=== PATIENT | female | born 1970 | race American Indian/Alaskan Native ===

== ENCOUNTER 2017-04-23 22:53 | Emergency (ER) | payer SELFPAY | END 2017-04-23 23:10 | disposition left against medical advice (07) | LOC: ED 22:53 | DX: N39.0 Urinary tract infection, site not specified (principal); Z53.21 Procedure and treatment not carried out due to patient leaving prior to being seen by health care provider ==

== ENCOUNTER 2017-04-26 21:44 | Emergency (ER) | payer OTHER ==
[2017-04-26 21:56] VITALS: BP 149/100
[2017-04-26 23:48] LABS: Bacteria,Urine 2+ /HPF (Negative); Bilirubin,Urine NEG (Negative); Blood,Urine LG (Negative); Ketones,Urine TR mg/dL (Negative); Leukocyte Esterase,Urine LG (Negative); Mucus,Urine 1+ /HPF; Nitrite,Urine NEG (Negative); Urobilinogen,Urine < 2.0 mg/dL (<2.0)
[2017-04-27 02:25] LABS: Bacteria,Urine 1+ /HPF (Negative); Bilirubin,Urine NEG (Negative); Blood,Urine MOD (Negative); Ketones,Urine 20 mg/dL (Negative); Leukocyte Esterase,Urine MOD (Negative); Mucus,Urine 1+ /HPF; Nitrite,Urine NEG (Negative); Urobilinogen,Urine < 2.0 mg/dL (<2.0)
--- NOTE | 2017-04-27 03:40 | Emergency Department Report ---
ED Female HPI - General Chief complaint: Urogenital-Female Stated complaint: POSS UTI Source: patient Mode of arrival: Ambulatory Limitations: No Limitations - History of Present Illness Initial comments: 46 year old female presents to ED with dysuria, frequency and mild hematuria x 3 days. patient is stable, neurologically intact and in no acute distress. patient denies N/V, abd pain, flank pain. patient has refused pelvic exam stating she has no concern for STD/vaginal infection. patient states she has OB/ [facility] appt scheduled and agrees and understands to keep appt for pelvic examination. MD Complaint: dysuria -: days(s) (3) Radiation: non-radiating Severity: mild Quality: burning Consistency: intermittent Worsens with: urination Are you Now?: No Associated Symptoms: dysuria, hematuria. denies: vaginal discharge, vaginal bleeding, abdominal pain, nausea/vomiting, fever/chills, headaches, loss of appetite, rash, seizure, shortness of breath, syncope, weakness - Related Data Previous Rx's Medication Instructions Recorded Last Taken Type Phenazopyridine [Pyridium] 100 mg PO TID #9 tab 04/27/17 Unknown Rx Sulfamethoxazole/Trimethoprim 1 each PO BID #6 tablet 04/27/17 Unknown Rx [Bactrim DS TAB] Allergies Allergy/AdvReac Type Severity Reaction Status Date / Time No Known Allergies Allergy Unverified 04/26/17 21:55 ED Review of Systems ROS: Stated complaint: POSS UTI Other details as noted in HPI Constitutional: denies: chills, diaphoresis, fever, weakness Eyes: denies: eye pain, eye discharge, vision change ENT: denies: ear pain, throat pain Respiratory: denies: cough, shortness of breath, wheezing Cardiovascular: denies: chest pain, palpitations Endocrine: no symptoms reported Gastrointestinal: denies: abdominal pain, nausea, vomiting, diarrhea Genitourinary: urgency, dysuria, frequency, hematuria. denies: discharge Musculoskeletal: denies: back pain, joint swelling, arthralgia Skin: denies: rash, lesions Neurological: denies: headache, weakness, numbness, paresthesias, confusion, abnormal gait, vertigo Psychiatric: denies: anxiety, depression Hematological/Lymphatic: denies: easy bleeding, easy bruising ED Past Medical Hx - Past Medical History Previous Medical History?: No Additional medical history: kidney stones,ovarian cyst - Surgical History Additional Surgical History: kidney stones,D&C - Social History Smoking Status: Never Smoker Substance Use Type: None - Medications Home Medications: Home Medications Medication Instructions Recorded Confirmed Last Taken Type Phenazopyridine [Pyridium] 100 mg PO TID #9 tab 04/27/17 Unknown Rx Sulfamethoxazole/Trimethoprim 1 each PO BID #6 tablet 04/27/17 Unknown Rx [Bactrim DS TAB] ED Physical Exam - General Limitations: No Limitations General appearance: alert, in no apparent distress - Head Head exam: Present: atraumatic, normocephalic - Eye Eye exam: Present: normal appearance - ENT ENT exam: Present: mucous membranes moist - Neck Neck exam: Present: normal inspection - Respiratory Respiratory exam: Present: normal lung sounds bilaterally. Absent: respiratory distress, wheezes, rales, rhonchi - Cardiovascular Cardiovascular Exam: Present: regular rate, normal rhythm. Absent: systolic murmur, diastolic murmur, rubs, gallop - GI/Abdominal GI/Abdominal exam: Present: soft, normal bowel sounds. Absent: distended, tenderness, guarding, rebound, rigid - Rectal Rectal exam: Present: deferred - External exam: Present: other (patient refused) - Extremities Exam Extremities exam: Present: normal inspection - Back Exam Back exam: Present: normal inspection - Neurological Exam Neurological exam: Present: alert, oriented X3 - Psychiatric Psychiatric exam: Present: normal affect, normal mood - Skin Skin exam: Present: warm, dry, intact, normal color. Absent: rash ED Course Vital Signs 04/26/17 21:51 Temperature 98.7 F Pulse Rate 73 Respiratory 18 Rate Blood Pressure 149/100 O2 Sat by Pulse 97 Oximetry ED Medical Decision Making - Lab Data Labs 04/26/17 04/27/17 23:02 02:02 Urine Color Shivani Yellow Urine Turbidity Cloudy Slightly-cloudy Urine pH 5.0 5.0 Ur Specific [place] 1.026 1.024 Urine Protein 30 mg/dl 30 mg/dl Urine Glucose (UA) Neg Neg Urine Ketones Tr 20 Urine Blood Lg Mod Urine Nitrite Neg Neg Urine Bilirubin Neg Neg Urine Urobilinogen < 2.0 < 2.0 Ur Leukocyte Esterase Lg Mod Urine WBC (Auto) 52.0 H 10.0 H Urine RBC (Auto) 7.0 11.0 U Epithel Cells (Auto) 97.0 H 19.0 H Urine Bacteria (Auto) 2+ 1+ Urine Mucus 1+ 1+ Urine HCG, Qual Negative - Medical Decision Making 46 year old female presents to ED with dysuria, hematuria and frequency/ urgency. patient has no history of DM. patient has urine positive for UTI and negative for . patient is stable, neurologically intact and in no acute distress. patient has refused pelvic examination during ED visit. patient agrees and understands importance of keeping prior [facility] appt for pelvic examination. Critical care attestation.: If time is entered above; I have spent that time in minutes in the direct care of this critically ill patient, excluding procedure time. ED Disposition Clinical Impression: UTI (urinary tract infection) Qualifiers: Urinary tract infection type: acute cystitis Hematuria presence: with hematuria Qualified Code(s): N30.01 - Acute cystitis with hematuria Disposition: TO HOME OR SELFCARE Is pt being admited?: No Does the pt Need Aspirin: No Condition: Stable Instructions: Urinary Tract Infection in Women (ED) Prescriptions: Phenazopyridine [Pyridium] 100 mg PO TID #9 tab Sulfamethoxazole/Trimethoprim [Bactrim DS TAB] 1 each PO BID #6 tablet Referrals: PRIMARY CARE, [Primary Care Provider] - 3-5 Days Forms: Work/School Release Form(ED)
== END 2017-04-27 02:50 | disposition home or self-care (01) ==
LOC: ED 21:44
DX: N30.01 Acute cystitis with hematuria (principal); N83.209 Unspecified ovarian cyst, unspecified side
CPT/HCPCS: 81001; 81025; 87086; 99283

== ENCOUNTER 2017-06-13 16:25 | Emergency (ER) | payer BC, OTHER ==
--- NOTE | 2017-06-13 16:50 | Emergency Department Report ---
Chief Complaint: Dizziness Stated Complaint: ELEVATED BLOOD PRESSURE,LIGHT HEADED Time Seen by Provider: 06/13/17 16:45 - HPI History of Present Illness: Patient here reports that she has elevated blood pressure and feels lightheaded. She says she feels dizzy. Blood pressure is 161/95 and reports she does not have a history of high blood pressure. Denies any nausea or vomiting. Reported headache 6 that attended to the front of her head. Denies any chest pain or shortness of breath. She reports that she is having some abdominal cramping on and off. Denies any urinary burning frequency or urgency. Denies any fever or chills. Denies any cough or congestion. - ROS Review of Systems: All systems are negative unless stated in HPI above - Exam Vital Signs: Vital Signs 06/13/17 16:27 Temperature 98.7 F Pulse Rate 72 Respiratory 18 Rate Blood Pressure 161/95 O2 Sat by Pulse 99 Oximetry Physical Exam: Gen.: 46-year-old female well-nourished well-developed in no acute distress Mini neurological: GCS of 15, alert and oriented 3, speech is clear and fluid and no facial drooping. Gait is normal. CV: S1, S2. Regular rate and rhythm. MSE screening note: Focused history and physical exam performed. Due to findings the following was ordered: ED Medical Decision Making - Medical Decision Making MDM: Patient screened by provider in triage area. Appropriate protocol initiated and patient to be seen in main ED by provider ED Disposition for MSE Condition: Stable
[2017-06-13 17:25] LABS: Basophils % (Auto) 0.4 % (0.0-1.8); Eosinophils % (Auto) 1.4 % (0.0-4.3); Hematocrit 39.4 % (30.3-42.9); Hemoglobin 12.8 gm/dl (10.1-14.3); Mean Corpuscular HGB Conc 33 % (30-34); Mean Corpuscular Hemoglobin 29 pg (28-32); Mean Corpuscular Volume 89 fl (79-97); Platelet Count 236 K/mm3 (140-440); Red Blood Count 4.42 M/mm3 (3.65-5.03); Red Cell Distribution Width 13.5 % (13.2-15.2); White Blood Count 4.1 K/mm3 (4.5-11.0)
[2017-06-13 17:47] LABS: Alanine Aminotransferase 19 units/L (7-56); Albumin/Globulin Ratio 1.1 %; Alkaline Phosphatase 51 units/L (35-129); Anion Gap 15 mmol/L; BUN/Creatinine Ratio 18; Blood Urea Nitrogen 9 mg/dL (7-17); Calcium 8.5 mg/dL (8.4-10.2); Carbon Dioxide 24 mmol/L (22-30); Chloride 102.7 mmol/L (98-107); Glucose 83 mg/dL (65-100); Potassium 3.9 mmol/L (3.6-5.0); Sodium 138 mmol/L (137-145); Total Protein 7.5 g/dL (6.3-8.2)
--- NOTE | 2017-06-13 18:12 | Cat Scan Report ---
FINAL REPORT EXAM: CT HEAD/BRAIN WO CON HISTORY: Lightheadedness/Dizziness TECHNIQUE: Standard unenhanced CT of the head at 5.0 millimeter axial increments. PRIORS: None. FINDINGS: The ventricular system is normal in size and configuration. Cavum septum vergae and pellucidum are normal variants. There is no evidence for parenchymal volume loss. There is no evidence for mass lesion, mass effect, midline shift, acute intracranial hemorrhage, or acute ischemia/ infarction. No evidence for acute skull fracture is seen. No abnormality in the overlying scalp soft tissues is seen. Visualized paranasal sinuses are clear. IMPRESSION: Negative CT of the head. No acute intracranial process noted.
[2017-06-13 18:21] VITALS: BP 132/85
[2017-06-13 18:31] LABS: Bilirubin,Urine NEG (Negative); Blood,Urine NEG (Negative); Ketones,Urine NEG (Negative); Leukocyte Esterase,Urine TR (Negative); Mucus,Urine 3+ /HPF; Nitrite,Urine NEG (Negative); Protein,Urine <15 mg/dL mg/dL (Negative)
--- NOTE | 2017-06-13 19:17 | Emergency Department Report ---
HPI - General Chief Complaint: Dizziness Time Seen by Provider: 06/13/17 16:50 - HPI HPI: This is a 46-year-old female who presents to the emergency department with complaint of a 2-3 day history of lightheadedness, dizziness, headache and feeling off balance. The headache is in the frontal area. She denies any vision change, slurred speech or any other neurological deficits. She has not taken anything for her symptoms prior to presentation she denies any past medical history. She does not have a primary care physician. She denies any tobacco or illicit drug use or abuse. The patient works here at [employer]. ED Past Medical Hx - Past Medical History Previous Medical History?: No Hx Kidney Stones: Yes Additional medical history: Ovarian cyst - Surgical History Additional Surgical History: D&C - Social History Smoking Status: Never Smoker Substance Use Type: None - Medications Home Medications: Home Medications Medication Instructions Recorded Confirmed Last Taken Type Phenazopyridine [Pyridium] 100 mg PO TID #9 tab 04/27/17 Unknown Rx Sulfamethoxazole/Trimethoprim 1 each PO BID #6 tablet 04/27/17 Unknown Rx [Bactrim DS TAB] ED Review of Systems ROS: Stated complaint: ELEVATED BLOOD PRESSURE,LIGHT HEADED Other details as noted in HPI Comment: All other systems reviewed and negative Constitutional: denies: chills, fever Eyes: denies: eye pain, eye discharge, vision change ENT: denies: ear pain, throat pain Respiratory: denies: cough, shortness of breath, wheezing Cardiovascular: denies: chest pain, palpitations Gastrointestinal: denies: abdominal pain, nausea, diarrhea Genitourinary: denies: urgency, dysuria, discharge Musculoskeletal: denies: back pain, joint swelling, arthralgia Skin: denies: rash, lesions Neurological: headache, other (dizziness, lightheadedness). denies: numbness, paresthesias Physical Exam - Physical Exam Vital Signs: Vital Signs 06/13/17 06/13/17 16:27 18:19 Temperature 98.7 F 98.1 F Pulse Rate 72 57 L Respiratory 18 16 Rate Blood Pressure 161/95 Blood Pressure 132/85 [Right] O2 Sat by Pulse 99 100 Oximetry Physical Exam: GENERAL: The patient is well-developed well-nourished. HENT: Normocephalic. Atraumatic. Patient has moist mucous membranes. EYES: Extraocular motions are intact. Pupils equal reactive to light bilaterally. No nystagmus. NECK: Supple. Trachea is midline. CHEST/LUNGS: Clear to auscultation. There is no respiratory distress noted. HEART/CARDIOVASCULAR: Regular. There is no tachycardia. There is no gallop rub or murmur. ABDOMEN: Abdomen is soft, nontender. Patient has normal bowel sounds. There is no abdominal distention. SKIN: Skin is warm and dry. NEURO: The patient is awake, alert, and oriented. The patient is cooperative. The patient has no focal neurologic deficits. The patient has normal speech and gait. Cranial nerves II through XII grossly intact. No dysmetria. No pronator drift. MUSCULOSKELETAL: There is no tenderness or deformity. There is no limitation range of motion. There is no evidence of acute injury. ED Course Vital Signs 06/13/17 06/13/17 16:27 18:19 Temperature 98.7 F 98.1 F Pulse Rate 72 57 L Respiratory 18 16 Rate Blood Pressure 161/95 Blood Pressure 132/85 [Right] O2 Sat by Pulse 99 100 Oximetry ED Medical Decision Making - Lab Data Result diagrams: 06/13/17 17:12 06/13/17 17:12 - EKG Data -: EKG Interpreted by Fl EKG shows normal: sinus rhythm, axis, intervals, QRS complexes, ST-T waves Rate: normal - EKG Data When compared to previous EKG there are: previous EKG unavailable Interpretation: normal EKG - Radiology Data Radiology results: report reviewed CT of the head does not show any acute intracranial process including no ischemia, shift, mass, bleeding or skull fracture. - Medical Decision Making 46-year-old female presents with some dizziness/lightheadedness and a headache. CT does not show any bleed, shift, mass or any acute process. Labs are unremarkable including no signs of infection, the patient is not , and normal thyroid function. Vital signs stable throughout her ED course. She does not have any focal, motor or sensory deficits in her cranial nerves are intact. She was reevaluated multiple times for multiple hours and she is feeling improved and no longer has a headache. She was seen ambulatory in the emergency department and appears stable. For all these reasons she appears safe for discharge home. She was given referrals for primary care. She will return to the ER with any worsening of her symptoms or any acute distress. - Differential Diagnosis vertigo, brain bleed, tension headache, vasovagal, orthostatic hypotension Critical Care Time: No Critical care attestation.: If time is entered above; I have spent that time in minutes in the direct care of this critically ill patient, excluding procedure time. ED Disposition Clinical Impression: Dizziness, Lightheaded Headache Qualifiers: Headache type: unspecified Headache chronicity pattern: unspecified pattern Intractability: not intractable Qualified Code(s): R51 - Headache Disposition: DC- TO HOME OR SELFCARE Is pt being admited?: No Condition: Stable Instructions: Acute Headache (ED), Lightheadedness (ED), Dizziness (ED) Additional Instructions: Please follow up with a primary care physician in the next few days. Return to the emergency Department with any worsening of your symptoms or any acute distress. Referrals: PRIMARY CARE, [Primary Care Provider] - 3-5 Days RICH LOPEZ MD [Staff Physician] - 3-5 Days PRADIP MENA MD [Staff Physician] - 3-5 Days [facility] [Outside] - 3-5 Days Time of Disposition: 20:30
== END 2017-06-13 20:45 | disposition home or self-care (01) ==
LOC: ED 16:25
DX: R42 Dizziness and giddiness (principal); R51 Headache; N83.209 Unspecified ovarian cyst, unspecified side
CPT/HCPCS: 36415; 70450; 80053; 81001; 84443; 84484; 84703; 85025; 93005; 93010

== ENCOUNTER 2017-08-31 16:41 | Emergency (ER) | payer SELFPAY ==
[2017-08-31] MEDS ORDERED: ASPIRIN PO ONE (16:55)
[2017-08-31 18:08] LABS: BUN/Creatinine Ratio 16; Blood Urea Nitrogen 11 mg/dL (7-17); Calcium 9.2 mg/dL (8.4-10.2); Hemolysis Index 18
[2017-08-31 18:33] LABS: Eosinophils # (Auto) 0.1 K/mm3 (0.0-0.4); Eosinophils % (Auto) 2.1 % (0.0-4.3); Hematocrit 40.3 % (30.3-42.9); Hemoglobin 13.9 gm/dl (10.1-14.3); Lymphocytes # (Auto) 1.4 K/mm3 (1.2-5.4); Lymphocytes % (Auto) 28.6 % (13.4-35.0); Mean Corpuscular HGB Conc 34 % (30-34); Mean Corpuscular Hemoglobin 30 pg (28-32); Mean Corpuscular Volume 87 fl (79-97); Monocytes # (Auto) 0.4 K/mm3 (0.0-0.8); Monocytes % (Auto) 8.9 % (0.0-7.3); Platelet Count 264 K/mm3 (140-440); Red Blood Count 4.64 M/mm3 (3.65-5.03); Red Cell Distribution Width 13.1 % (13.2-15.2)
--- NOTE | 2017-08-31 19:02 | XRay Report ---
FINAL REPORT EXAM: XR CHEST ROUTINE 2V HISTORY: sob TECHNIQUE: Frontal and lateral chest x-ray. PRIORS: None. FINDINGS: Cardiac and mediastinal silhouette within normal limits. Lungs are normally expanded, without significant vascular congestion. No focal consolidation, pleural effusion or apparent pneumothorax. Very mild dextroconvex curvature of thoracic spine. IMPRESSION: 1. No acute findings.
[2017-08-31] MEDS ORDERED: TORADOL IM ONE (20:28)
[2017-08-31 20:52] LABS: Bacteria,Urine 1+ /HPF (Negative); Bilirubin,Urine NEG (Negative); Blood,Urine NEG (Negative); Color,Urine Yellow (Yellow); Mucus,Urine FEW /HPF; Nitrite,Urine NEG (Negative); Urobilinogen,Urine < 2.0 mg/dL (<2.0)
--- NOTE | 2017-08-31 21:15 | Emergency Department Report ---
- General Chief Complaint: Dyspnea/Respdistress Stated Complaint: SOB, DIZZY Time Seen by Provider: 08/31/17 20:10 Source: patient Mode of arrival: Ambulatory Limitations: No Limitations - History of Present Illness Initial Comments: 47-year-old female with a past medical history of kidney stones and ovarian cysts presents to the hospital with flulike symptoms since last week. Positive cough productive of clear sputum, subjective fever, chills, and fatigue. Today after taking DayQuil shehad onset of spinning sensation, shortness of breath, and chest discomfort associated with coughing. Patient denies recent travel. Denies no sick contacts. Since waiting in the ED dizziness, shortness of breath , chest pain have resolved with just feels overall fatigued at this time. - Related Data Previous Rx's Medication Instructions Recorded Last Taken Type Phenazopyridine [Pyridium] 100 mg PO TID #9 tab 04/27/17 Unknown Rx Sulfamethoxazole/Trimethoprim 1 each PO BID #6 tablet 04/27/17 Unknown Rx [Bactrim DS TAB] Azithromycin [Zithromax Z-SHADY] 1 dose PO DAILY 5 Days tab 08/31/17 Unknown Rx Benzonatate [Tessalon Perles] 100 mg PO Q8HR PRN #14 capsule 08/31/17 Unknown Rx Ibuprofen [Motrin] 800 mg PO Q8HR PRN #30 tablet 08/31/17 Unknown Rx Allergies Allergy/AdvReac Type Severity Reaction Status Date / Time No Known Allergies Allergy Verified 06/13/17 16:26 ED Review of Systems ROS: Stated complaint: SOB, DIZZY Other details as noted in HPI Comment: All other systems reviewed and negative Other: Constitutional: As per HPI Eyes: No eye pain visual changes ENT: No ear pain or throat pain Neck: Denies pain Respiratory: Positive cough wheezing shortness of breath Cardiovascular: Denies chest pain, palpitations, syncope GI: Denies abdominal pain, nausea, vomiting, diarrhea : Denies dysuria Musculoskeletal: Denies back pain, joint swelling Skin: Denies rash, lesions, erythema Neurologic: Positive headache Psychiatric: Denies suicidal ideation, hallucinations ED Past Medical Hx - Past Medical History Hx Kidney Stones: Yes Additional medical history: Ovarian cyst - Surgical History Additional Surgical History: D&C - Social History Smoking Status: Never Smoker Substance Use Type: None - Medications Home Medications: Home Medications Medication Instructions Recorded Confirmed Last Taken Type Phenazopyridine [Pyridium] 100 mg PO TID #9 tab 04/27/17 Unknown Rx Sulfamethoxazole/Trimethoprim 1 each PO BID #6 tablet 04/27/17 Unknown Rx [Bactrim DS TAB] Azithromycin [Zithromax Z-SHADY] 1 dose PO DAILY 5 Days tab 08/31/17 Unknown Rx Benzonatate [Tessalon Perles] 100 mg PO Q8HR PRN #14 capsule 08/31/17 Unknown Rx Ibuprofen [Motrin] 800 mg PO Q8HR PRN #30 tablet 08/31/17 Unknown Rx ED Physical Exam - General Limitations: No Limitations - Other Other exam information: General: No limitations, patient is alert in no acute distress Head exam: Atraumatic, normocephalic Eyes exam: Normal appearance ENT: Moist mucous membrane, normal oropharynx, mild maxillary sinus tenderness Neck exam: Normal inspection, full range of motion, no meningismus nontender Respiratory exam: Clear to auscultation bilateral, no wheezes, rales, crackles Cardiovascular: Normal rate and rhythm, normal heart sounds Abdomen: Soft, nondistended, and nontender, with normal bowel sounds, no rebound, or guarding Extremity: Full range of motion normal inspection no deformity Back: Normal Inspection, full range of motion, no tenderness Neurologic: Alert, oriented x3, cranial nerves intact, no motor or sensory deficit Psychiatric: normal affect, normal mood Skin: Warm, dry, intact ED Course Vital Signs 08/31/17 08/31/17 08/31/17 16:52 18:46 18:50 Temperature 98 F Pulse Rate 28 L Respiratory 18 Rate Blood Pressure 150/99 130/90 O2 Sat by Pulse 99 99 98 Oximetry 08/31/17 08/31/17 08/31/17 19:00 19:10 19:20 Temperature Pulse Rate Respiratory Rate Blood Pressure 125/87 125/87 125/87 O2 Sat by Pulse 99 99 100 Oximetry 08/31/17 08/31/17 08/31/17 19:30 19:40 19:55 Temperature Pulse Rate Respiratory Rate Blood Pressure 125/87 125/87 130/90 O2 Sat by Pulse 100 100 100 Oximetry 08/31/17 08/31/17 08/31/17 20:00 20:05 20:11 Temperature 97.9 F Pulse Rate 60 60 60 Respiratory 21 18 21 Rate Blood Pressure 129/76 125/87 125/87 O2 Sat by Pulse 100 100 100 Oximetry 08/31/17 08/31/17 08/31/17 20:15 20:21 20:25 Temperature Pulse Rate 59 L 58 L 60 Respiratory 20 20 13 Rate Blood Pressure 117/77 117/77 117/77 O2 Sat by Pulse 100 100 100 Oximetry 08/31/17 08/31/17 08/31/17 20:30 20:35 20:41 Temperature Pulse Rate 57 L 61 57 L Respiratory 19 18 16 Rate Blood Pressure 121/73 121/73 121/73 O2 Sat by Pulse 100 100 100 Oximetry 08/31/17 08/31/17 08/31/17 20:45 20:51 20:55 Temperature Pulse Rate 56 L 53 L 57 L Respiratory 19 16 18 Rate Blood Pressure 133/85 133/85 133/85 O2 Sat by Pulse 100 100 100 Oximetry 08/31/17 08/31/17 08/31/17 21:09 21:11 21:15 Temperature Pulse Rate 88 60 56 L Respiratory 12 15 15 Rate Blood Pressure 135/83 O2 Sat by Pulse 100 98 100 Oximetry 08/31/17 21:21 Temperature Pulse Rate 51 L Respiratory 12 Rate Blood Pressure 135/83 O2 Sat by Pulse 100 Oximetry ED Medical Decision Making - Lab Data Result diagrams: 08/31/17 17:00 08/31/17 17:00 Lab Results 08/31/17 08/31/17 08/31/17 Range/Units 17:00 17:00 17:00 WBC 4.9 (4.5-11.0) K/mm3 RBC 4.64 (3.65-5.03) M/mm3 Hgb 13.9 (10.1-14.3) gm/dl Hct 40.3 (30.3-42.9) % MCV 87 (79-97) fl MCH 30 (28-32) pg MCHC 34 (30-34) % RDW 13.1 L (13.2-15.2) % Plt Count 264 (140-440) K/mm3 Lymph % (Auto) 28.6 (13.4-35.0) % Jackson % (Auto) 8.9 H (0.0-7.3) % Eos % (Auto) 2.1 (0.0-4.3) % Baso % (Auto) Intermediate Accountant Lymph # 1.4 (1.2-5.4) K/mm3 Jackson # 0.4 (0.0-0.8) K/mm3 Eos # 0.1 (0.0-0.4) K/mm3 Baso # 0.0 (0.0-0.1) K/mm3 Seg Neutrophils % 59.9 (40.0-70.0) % Seg Neutrophils # 2.9 (1.8-7.7) K/mm3 D-Dimer < 135.00 (0-234) ng/mlDDU Sodium 138 (137-145) mmol/L Potassium 3.8 (3.6-5.0) mmol/L Chloride 100.9 (98-107) mmol/L Carbon Dioxide 20 L (22-30) mmol/L Anion Gap 21 mmol/L BUN 11 (7-17) mg/dL Creatinine 0.7 (0.7-1.2) mg/dL Estimated GFR > 60 ml/min BUN/Creatinine Ratio 16 % Glucose 89 (65-100) mg/dL Calcium 9.2 (8.4-10.2) mg/dL Troponin T < 0.010 (0.00-0.029) ng/mL Urine Color (Yellow) Urine Turbidity (Clear) Urine pH (5.0-7.0) Ur Specific [place] (1.003-1.030) Urine Protein (Negative) mg/dL Urine Glucose (UA) (Negative) mg/dL Urine Ketones (Negative) mg/dL Urine Blood (Negative) Urine Nitrite (Negative) Urine Bilirubin (Negative) Urine Urobilinogen (<2.0) mg/dL Ur Leukocyte Esterase (Negative) Urine WBC (Auto) (0.0-6.0) /HPF Urine RBC (Auto) (0.0-6.0) /HPF U Epithel Cells (Auto) (0-13.0) /HPF Urine Bacteria (Auto) (Negative) /HPF Urine Mucus /HPF 08/31/17 08/31/17 Range/Units 19:55 20:04 WBC (4.5-11.0) K/mm3 RBC (3.65-5.03) M/mm3 Hgb (10.1-14.3) gm/dl Hct (30.3-42.9) % MCV (79-97) fl MCH (28-32) pg MCHC (30-34) % RDW (13.2-15.2) % Plt Count (140-440) K/mm3 Lymph % (Auto) (13.4-35.0) % [place] % (Auto) (0.0-7.3) % Eos % (Auto) (0.0-4.3) % Baso % (Auto) Lymph # (1.2-5.4) K/mm3 [place] # (0.0-0.8) K/mm3 Eos # (0.0-0.4) K/mm3 Baso # (0.0-0.1) K/mm3 Seg Neutrophils % (40.0-70.0) % Seg Neutrophils # (1.8-7.7) K/mm3 D-Dimer (0-234) ng/mlDDU Sodium (137-145) mmol/L Potassium (3.6-5.0) mmol/L Chloride (98-107) mmol/L Carbon Dioxide (22-30) mmol/L Anion Gap mmol/L BUN (7-17) mg/dL Creatinine (0.7-1.2) mg/dL Estimated GFR ml/min BUN/Creatinine Ratio % Glucose (65-100) mg/dL Calcium (8.4-10.2) mg/dL Troponin T < 0.010 (0.00-0.029) ng/mL Urine Color Yellow (Yellow) Urine Turbidity Clear (Clear) Urine pH 9.0 H (5.0-7.0) Ur Specific [place] 1.020 (1.003-1.030) Urine Protein 100 mg/dl (Negative) mg/dL Urine Glucose (UA) Neg (Negative) mg/dL Urine Ketones Neg (Negative) mg/dL Urine Blood Neg (Negative) Urine Nitrite Neg (Negative) Urine Bilirubin Neg (Negative) Urine Urobilinogen < 2.0 (<2.0) mg/dL Ur Leukocyte Esterase Tr (Negative) Urine WBC (Auto) 12.0 H (0.0-6.0) /HPF Urine RBC (Auto) 4.0 (0.0-6.0) /HPF U Epithel Cells (Auto) 19.0 H (0-13.0) /HPF Urine Bacteria (Auto) 1+ (Negative) /HPF Urine Mucus Few /HPF - EKG Data -: EKG Interpreted by Ak EKG shows normal: sinus rhythm, axis (38), QRS complexes (73), ST-T waves (no stemi/t inv) Rate: normal (69) - Radiology Data Radiology results: report reviewed Chest x-ray: No acute findings - Medical Decision Making Plan to provide medications for acute bronchitis. Likely symptoms are related to viral syndrome. Symptomatic treatment will be provided Patient denies any symptoms, high-level epithelia cells, therefore contaminated and will not be treated for uti - Differential Diagnosis bronchitis, pneumonia, sinusitis, viral syndrome Critical Care Time: No Critical care attestation.: If time is entered above; I have spent that time in minutes in the direct care of this critically ill patient, excluding procedure time. ED Disposition Clinical Impression: Acute bronchitis Disposition: TO HOME OR SELFCARE Is pt being admited?: No Does the pt Need Aspirin: No Condition: Stable Instructions: Acute Bronchitis (ED) Additional Instructions: Take the medications as prescribed. Follow-up with the doctor or clinic provided. Return is symptoms worsen Prescriptions: Azithromycin [Zithromax Z-SHADY] 1 dose PO DAILY 5 Days tab Benzonatate [Tessalon Perles] 100 mg PO Q8HR PRN #14 capsule PRN Reason: Cough Ibuprofen [Motrin] 800 mg PO Q8HR PRN #30 tablet PRN Reason: Pain Referrals: RICH LOPEZ MD [Primary Care Provider] - 3-5 Days [facility] [Provider Group] - 3-5 Days Forms: Work/School Release Form(ED) Time of Disposition: 21:53
[2017-08-31 21:35] LABS: HCG Qualitative,Urine Negative (Negative)
[2017-08-31 22:28] VITALS: BP 130/82
== END 2017-08-31 22:29 | disposition home or self-care (01) ==
LOC: ED 16:41
DX: J40 Bronchitis, not specified as acute or chronic (principal)
CPT/HCPCS: 36415; 71046; 80048; 81001; 81025; 84484; 85025; 85379; 87400; 93005; 93010; 96372; 99284; J1885

== ENCOUNTER 2017-12-19 16:12 | Emergency (ER) | payer BC, OTHER ==
[2017-12-19 18:25] VITALS: BP 151/98
--- NOTE | 2017-12-19 18:41 | Emergency Department Report ---
ED General Adult HPI - General Chief complaint: Headache Stated complaint: HYPERTENSIVE Time Seen by Provider: 12/19/17 17:57 Source: patient Mode of arrival: Ambulatory Limitations: No Limitations - History of Present Illness Initial comments: The patient is a 47-year-old black female presenting with a mild headache for the past several days. Patient states she's been pretty upset this weekend because her ex- states that she's been crying a lot she feels a headache with some pressure behind bilateral eyes. Checking in the patient's blood pressure was elevated. Patient denies any chest pain shortness of breath fevers chills nausea vomiting at this time. Severity scale (0 -10): 0 - Related Data Previous Rx's Medication Instructions Recorded Last Taken Type Phenazopyridine [Pyridium] 100 mg PO TID #9 tab 04/27/17 Unknown Rx Sulfamethoxazole/Trimethoprim 1 each PO BID #6 tablet 04/27/17 Unknown Rx [Bactrim DS TAB] Azithromycin [Zithromax Z-SHADY] 1 dose PO DAILY 5 Days tab 08/31/17 Unknown Rx Benzonatate [Tessalon Perles] 100 mg PO Q8HR PRN #14 capsule 08/31/17 Unknown Rx Ibuprofen [Motrin] 800 mg PO Q8HR PRN #30 tablet 08/31/17 Unknown Rx ALPRAZolam [Xanax TAB] 0.25 mg PO BID PRN #6 tab 12/19/17 Unknown Rx Amlodipine Besylate [Norvasc] 2.5 mg PO DAILY #30 tablet 12/19/17 Unknown Rx Allergies Allergy/AdvReac Type Severity Reaction Status Date / Time No Known Allergies Allergy Verified 06/13/17 16:26 ED Review of Systems ROS: Stated complaint: HYPERTENSIVE Other details as noted in HPI Comment: All other systems reviewed and negative ED Past Medical Hx - Past Medical History Hx Kidney Stones: Yes Additional medical history: Ovarian cyst - Surgical History Additional Surgical History: D&C, tubiligation - Social History Smoking Status: Never Smoker Substance Use Type: None - Medications Home Medications: Home Medications Medication Instructions Recorded Confirmed Last Taken Type Phenazopyridine [Pyridium] 100 mg PO TID #9 tab 04/27/17 Unknown Rx Sulfamethoxazole/Trimethoprim 1 each PO BID #6 tablet 04/27/17 Unknown Rx [Bactrim DS TAB] Azithromycin [Zithromax Z-SHADY] 1 dose PO DAILY 5 Days tab 08/31/17 Unknown Rx Benzonatate [Tessalon Perles] 100 mg PO Q8HR PRN #14 capsule 08/31/17 Unknown Rx Ibuprofen [Motrin] 800 mg PO Q8HR PRN #30 tablet 08/31/17 Unknown Rx ALPRAZolam [Xanax TAB] 0.25 mg PO BID PRN #6 tab 12/19/17 Unknown Rx Amlodipine Besylate [Norvasc] 2.5 mg PO DAILY #30 tablet 12/19/17 Unknown Rx ED Physical Exam - General Limitations: No Limitations General appearance: alert, in no apparent distress - Head Head exam: Present: atraumatic, normocephalic - Eye Eye exam: Present: normal appearance - ENT ENT exam: Present: mucous membranes moist - Neck Neck exam: Present: normal inspection - Respiratory Respiratory exam: Present: normal lung sounds bilaterally. Absent: respiratory distress, wheezes, rales, rhonchi - Cardiovascular Cardiovascular Exam: Present: regular rate, normal rhythm. Absent: systolic murmur, diastolic murmur, rubs, gallop - GI/Abdominal GI/Abdominal exam: Present: soft, normal bowel sounds. Absent: distended, tenderness, guarding, rebound - Extremities Exam Extremities exam: Present: normal inspection - Back Exam Back exam: Present: normal inspection - Neurological Exam Neurological exam: Present: alert, oriented X3 - Psychiatric Psychiatric exam: Present: normal affect, normal mood - Skin Skin exam: Present: warm, dry, intact, normal color. Absent: rash ED Course Vital Signs 12/19/17 12/19/17 16:39 18:24 Temperature 98.7 F 98.1 F Pulse Rate 77 60 Respiratory 18 18 Rate Blood Pressure 128/89 Blood Pressure 151/98 [Left] O2 Sat by Pulse 99 98 Oximetry ED Medical Decision Making - Lab Data Vital Signs - 24 hr 12/19/17 12/19/17 16:39 18:24 Temperature 98.7 F 98.1 F Pulse Rate 77 60 Respiratory 18 18 Rate Blood Pressure 128/89 Blood Pressure 151/98 [Left] O2 Sat by Pulse 99 98 Oximetry - Medical Decision Making 47-year-old -[place] female who presented with slightly elevated blood pressure after grieving the loss of family member. Patient states that it's just have a history of high blood pressure. Patient was allowed to sit for some time and we've taken her blood pressure again and is actually is continue to be elevated there was one episode where decreased but is actually back to 150 range systolic. Patient will be discharged home with a few Xanax for her stress from grieving and patient will be started on a low dose of Norvasc. Critical care attestation.: If time is entered above; I have spent that time in minutes in the direct care of this critically ill patient, excluding procedure time. ED Disposition Clinical Impression: Hypertensive urgency, Grief reaction Disposition: DC-01 TO HOME OR SELFCARE Is pt being admited?: No Does the pt Need Aspirin: No Condition: Stable Instructions: Hypertension (ED), Grief and Loss (ED) Prescriptions: ALPRAZolam [Xanax TAB] 0.25 mg PO BID PRN #6 tab PRN Reason: Anxiety Amlodipine Besylate [Norvasc] 2.5 mg PO DAILY #30 tablet Referrals: KELLI POLANCO MD [Staff Physician] - 3-5 Days
== END 2017-12-19 19:08 | disposition home or self-care (01) ==
LOC: ED 16:12
DX: I16.0 Hypertensive urgency (principal); F43.20 Adjustment disorder, unspecified; Z98.51 Tubal ligation status; Z87.442 Personal history of urinary calculi
CPT/HCPCS: 99282

== ENCOUNTER 2017-12-20 17:07 | Emergency (ER) | payer BC ==
[2017-12-20 17:15] VITALS: BP 148/99
[2017-12-20] MEDS ORDERED: MOTRIN PO ONE (20:15)
--- NOTE | 2017-12-20 20:15 | Emergency Department Report ---
HPI - General Chief Complaint: Headache Time Seen by Provider: 12/20/17 19:48 - HPI HPI: Patient is a 47-year-old female who was seen here in the ED yesterday for elevated blood pressure returns today states that she is not feeling any better. Patient states she lost her ex- recently and had the over the weekend patient states she's been under a lot of stress. Patient states she has a history of hypertension but was prescribed some amlodipine yesterday. Patient states she is taking the medication today and came into work today but not with the feeling well. So she came in to the ED. She denies fevers/chills/nausea vomiting/abdominal pain/chest pain/shortness of breath. ED Past Medical Hx - Past Medical History Hx Hypertension: Yes Hx Kidney Stones: Yes Additional medical history: Ovarian cyst - Surgical History Additional Surgical History: D&C, tubiligation - Social History Smoking Status: Never Smoker Substance Use Type: None - Medications Home Medications: Home Medications Medication Instructions Recorded Confirmed Last Taken Type Phenazopyridine [Pyridium] 100 mg PO TID #9 tab 04/27/17 Unknown Rx Sulfamethoxazole/Trimethoprim 1 each PO BID #6 tablet 04/27/17 Unknown Rx [Bactrim DS TAB] Azithromycin [Zithromax Z-SHADY] 1 dose PO DAILY 5 Days tab 08/31/17 Unknown Rx Benzonatate [Tessalon Perles] 100 mg PO Q8HR PRN #14 capsule 08/31/17 Unknown Rx ALPRAZolam [Xanax TAB] 0.25 mg PO BID PRN #6 tab 12/19/17 Unknown Rx Amlodipine Besylate [Norvasc] 2.5 mg PO DAILY #30 tablet 12/19/17 Unknown Rx Ibuprofen [Motrin 800 MG tab] 800 mg PO Q8HR PRN #30 tablet 12/20/17 Unknown Rx ED Review of Systems ROS: Stated complaint: BIRD/DIZZY/HTN Other details as noted in HPI Constitutional: denies: chills, fever Eyes: denies: eye pain, eye discharge, vision change ENT: denies: ear pain, throat pain Respiratory: denies: cough, shortness of breath, wheezing Cardiovascular: denies: chest pain, palpitations Endocrine: no symptoms reported Gastrointestinal: denies: abdominal pain, nausea, diarrhea Genitourinary: denies: urgency, dysuria, discharge Musculoskeletal: denies: back pain, joint swelling, arthralgia Skin: denies: rash, lesions Neurological: denies: headache, weakness, paresthesias Psychiatric: denies: anxiety, depression Hematological/Lymphatic: denies: easy bleeding, easy bruising Physical Exam - Physical Exam Vital Signs: Vital Signs 12/20/17 17:12 Temperature 98.4 F Pulse Rate 75 Respiratory 18 Rate Blood Pressure 148/99 O2 Sat by Pulse 99 Oximetry Physical Exam: GENERAL: Alert and oriented x3, no apparent distress, Normal Gait, atraumatic. HEAD: Head is normocephalic and a-traumatic. EYES: Extra ocular muscles are intact. Pupils are equal, round, and reactive to light and accommodation. MOUTH:Mouth is well hydrated and without lesions. Tonsils nonerythematous or swollen, Uvula midline, Tongue not elevated. Mucous membranes are moist. Posterior pharynx clear, no exudate or lesions. Patent airways. NECK: Supple. Non edematous, No lymphadenopathy or thyromegaly. No C-spine tenderness LUNGS: Symetrical with respiration, No wheezing, no rales or crackles, CTAB. HEART: S1, S2 present, regular rate and rhythm without murmur, no rubs, no gallops. Non tender to palpation NEUROLOGIC: The patient is cooperative with no focal neurologic deficits. SKIN: Warm and dry, No lesions, No ulceration or induration present. ED Course Vital Signs 12/20/17 17:12 Temperature 98.4 F Pulse Rate 75 Respiratory 18 Rate Blood Pressure 148/99 O2 Sat by Pulse 99 Oximetry ED Medical Decision Making - Medical Decision Making 47-year-old female presents with feelings of stress due to loss of an ex ED course: I discussed the patie to take some days of, rest. discussed with the patient recheck of the blood pressure. I discussed the patient follow up with the primary care to assess for true hypertension. Discussed plenty of rest. Discussed therapies if needed. Discuss to monitor blood pressure daily. Patient is in no acute distress or respiratory distress. Vital signs are normal Critical care attestation.: If time is entered above; I have spent that time in minutes in the direct care of this critically ill patient, excluding procedure time. ED Disposition Clinical Impression: Grief Disposition: -01 TO HOME OR SELFCARE Is pt being admited?: No Does the pt Need Aspirin: No Condition: Stable Instructions: Grief and Loss (ED), Low Sodium Diet (ED) Additional Instructions: Make sure to follow up with the primary care physician as discussed. Take all your medications as you've been prescribed. If you have any worsening symptoms or develop new symptoms please return to ED immediately. Prescriptions: Ibuprofen [Motrin 800 MG tab] 800 mg PO Q8HR PRN #30 tablet PRN Reason: Pain Referrals: PRIMARY CARE, [Primary Care Provider] - 3-5 Days YFN CHAPIN MD [Referring] - 3-5 Days [facility] [Provider Group] - 3-5 Days Forms: Work/School Release Form(ED) Time of Disposition: 20:27
== END 2017-12-20 21:00 | disposition home or self-care (01) ==
LOC: ED 17:07
DX: F43.21 Adjustment disorder with depressed mood (principal); I10 Essential (primary) hypertension; Z98.51 Tubal ligation status; Z87.442 Personal history of urinary calculi
CPT/HCPCS: 99283